=== PATIENT | male | born 1985 | race Caucasian/White ===

== ENCOUNTER → 2025-07-17 12:47 | Outpatient (REF) | payer OTHER, SELFPAY ==
[2025-07-17 13:44] LABS: Hematocrit 50.2 % (39.0-52.0); Hemoglobin 16.8 g/dL (13.0-18.0); Mean Corp Hgb Conc. 33.5 g/dL (33.0-37.0); Mean Corpuscular Volume 82.2 fL (80.0-94.0); Nucleated Red Blood Cells % 0 % (-); Platelet Count 210 10^3/uL (130-400); Red Cell Dist. Width 13.2 % (11.5-14.5)
[2025-07-17 13:54] LABS: Blood Urea Nitrogen 17 mg/dl (9-20); Calcium 9.6 mg/dl (8.4-10.2); Carbon Dioxide 25 mmol/L (22-30); Chloride 101 mmol/L (98-107); Glucose 94 mg/dl (70-99); Potassium 4.6 mmol/L (3.5-5.1); Sodium 136 mmol/L (135-145); eGFR > 60.00
== END ==
LOC: RAD 12:47
PROVIDERS: ATTENDING PHYSICIAN Nurse Practitioner Family
DX: R31.29 Other microscopic hematuria (principal); R10.9 Unspecified abdominal pain
CPT/HCPCS: 36415; 74176; 80048; 85025

== ENCOUNTER 2025-09-05 06:27 | Day surgery (SDC) | payer OTHER, SELFPAY ==
[2025-09-05] VITALS (7 sets, daily range): BP systolic 94–124; BP diastolic 56–94; BMI 34.5
[2025-09-05 13:09] LABS: Glucose - Point of Care 82 mg/dl (70-99)
[2025-09-05] MEDS: DETROL LA 4 MG PO (14:41)
--- NOTE | 2025-09-05 14:58 | W.IMMPOSTOP ---
Surgical Immed Post Op Note
-
Primary Surgeon: Mehreen
Pre-op Diagnosis: Obstructing distal left ureteral stone (5 mm)
Post-op Diagnosis: Distal migration of left ureteral stone into fossa navicularis
Procedure Performed: cystoscopy, basket extraction of stone, left URS (negative), meatal dilation (S-curve dilators)
Anesthesia Type: LMA + intraurethral lidocaine jelly
Specimen / Cultures: Stones for analysis/None
Drains: None
Estimated Blood Loss: Negligible
Complications: None
Operative Findings: 5 mm stone (previously in distal left ureter) impacted w/n fossa navicularis - extracted via basket, mild distal urethral trauma from stone passage noted w/o bleeding, left URS negative for stone
[2025-09-11 09:14] LABS: Stone Analysis Mass 47 mg
== END 2025-09-05 15:30 | disposition home or self-care (01) ==
LOC: SDS 06:27
PROVIDERS: ATTENDING PHYSICIAN Surgery
DX: N20.1 Calculus of ureter (principal)
CPT/HCPCS: 52352; 74018; 76000; 82365; 82962